=== PATIENT | female | born 1945 | race African-American/Black ===

== ENCOUNTER 2017-03-12 09:11 | Inpatient (IN) ==
--- NOTE | 2017-03-11 21:57 | Discharge Summary ---
<Digna Watersluis manuel Mccracken - Last Filed: 03/11/17 21:54> Date of Encounter: 03/11/17 - Discharge Diagnosis (1) Arthritis of left hip Priority: Primary Status: Acute (2) Status post total hip replacement, left Priority: Primary Status: Acute (3) CKD (chronic kidney disease) stage 3, GFR 30-59 ml/min Priority: Secondary Status: Chronic (4) HTN (hypertension) Priority: Secondary Status: Chronic Qualifiers: Hypertension type: essential hypertension Qualified Code(s): I10 - Essential (primary) hypertension (5) Lupus Priority: Secondary Status: Chronic Qualifiers: Lupus erythematosus form: unspecified Qualified Code(s): L93.0 - Discoid lupus erythematosus (6) Gout Priority: Secondary Status: Chronic Qualifiers: Gout site: unspecified site Gout etiology: unspecified cause Chronicity: unspecified Qualified Code(s): M10.9 - Gout, unspecified (7) Anemia, chronic disease Priority: Secondary Status: Chronic (8) Chronic steroid use Priority: Secondary Status: Chronic - Discharge Medications Home Medications: Aspirin Enteric Coated [Aspirin EC] 325 mg PO DAILY #21 tablet.dr 03/11/17 [Rx] OxyCODONE Immed Rel [Roxicodone 5 MG] 5 - 10 mg PO Q6HR PRN #40 tablet 03/11/17 [Rx] Acetaminophen [Tylenol Arthritis] 650 mg PO Q6H PRN 03/12/17 [History] Allopurinol [Zyloprim 100 MG] 500 mg PO DAILY 03/12/17 [History] Brimonidine Tartrate/Timolol [Combigan Eye Drops] 1 drop OP BID 03/12/17 [ History] Calcitriol [Rocaltrol] 0.25 mcg PO MOWEFR 03/12/17 [History] Cyanocobalamin (B-12) [Vitamin B12] 1,000 mcg IM QMONTH 03/12/17 [History] Furosemide [Lasix] 40 mg PO BID 03/12/17 [History] Hydroxychloroquine [Plaquenuil] 200 mg PO BID 03/12/17 [History] Latanoprost [Xalatan] 1 drop OP QPM 03/12/17 [History] Leflunomide [Arava] 20 mg PO DAILY 03/12/17 [History] Metoprolol Succinate 100 mg PO BID 03/12/17 [History] PredniSONE [Moise] 7.5 mg PO DAILY 03/12/17 [History] PrednisoLONE Acetate [Pred Forte] 2 drop OP QID 03/12/17 [History] Tramadol HCl [Ultram] 50 mg PO Q6H PRN 03/12/17 [History] amLODIPine [Norvasc] 5 mg PO DAILY 03/12/17 [History] Allergies/Adverse Reactions: Allergies azithromycin [From Zithromax] Allergy (Verified 04/28/16 08:30) Hives cephalexin Allergy (Verified 04/28/16 08:30) Hives Erythromycin Base Allergy (Verified 04/28/16 08:30) Hives nitrofurantoin [From Macrodantin] Allergy (Verified 04/28/16 08:30) Hives Penicillins Allergy (Verified 04/28/16 08:30) Itching propoxyphene [From Darvon] Allergy (Verified 04/28/16 08:30) Agitated Sulfa (Sulfonamide Antibiotics) Allergy (Verified 04/28/16 08:30) Hives acetaminophen [From Percocet] Adverse Reaction (Verified 04/28/16 08:30) Agitated Oxycodone [From Percocet] Adverse Reaction (Verified 04/28/16 08:30) Agitated IVP DYe Allergy (Uncoded 04/28/16 08:30) Vomiting Primary care physician: Suzanne Carpenter CNP - Patient Status Disposition: Home Health Service Condition: Good - Discharge Instructions Follow Up With: Suzanne Carpenter CNP [Primary Care Provider] - - Hospital Course Hospital course: Ms. Awad is a 71 year old female - Time Spent with Patient Total time spent providing and/or coordinating discharge services: <Ned Verdugo - Last Filed: 03/14/17 06:25> Date of Encounter: 03/14/17 Time of Encounter: 06:24 - Discharge Diagnosis (1) Anemia, chronic disease Priority: Secondary Status: Chronic (2) Arthritis of left hip Priority: Primary Status: Chronic (3) Chronic steroid use Priority: Secondary Status: Chronic (4) CKD (chronic kidney disease) stage 3, GFR 30-59 ml/min Priority: Secondary Status: Chronic (5) Gout Priority: Secondary Status: Chronic Qualifiers: Gout site: unspecified site Gout etiology: unspecified cause Chronicity: unspecified Qualified Code(s): M10.9 - Gout, unspecified (6) HTN (hypertension) Priority: Secondary Status: Chronic Qualifiers: Hypertension type: essential hypertension Qualified Code(s): I10 - Essential (primary) hypertension (7) Lupus Priority: Secondary Status: Chronic Qualifiers: Lupus erythematosus form: unspecified Qualified Code(s): L93.0 - Discoid lupus erythematosus (8) Status post total hip replacement, left Priority: Primary Status: Acute (9) Obesity (BMI 35.0-39.9 without comorbidity) Priority: Secondary Status: Chronic (10) Acute blood loss anemia Priority: Primary Status: Acute Primary care physician: Suzanne Carpenter CNP - Patient Status Functional capacity at discharge: uses cane/walker Overall status at discharge: patient is progressing back to baseline - Hospital Course Hospital course: Ms. wAad is a 71 year old female Status post left total hip replacement. Patient with acute blood loss anemia discharge hemoglobin 8.5 after 2 units of packed red blood cells. The patient had an uneventful postoperative course. They received antibiotics and physical therapy and were discharged in stable condition. There will follow -up in the office in 2 weeks. - Time Spent with Patient Total time spent providing and/or coordinating discharge services:
[2017-03-12] MEDS ORDERED: Lidocaine -MPF 1% 2 ML VIAL ID ONE (09:36)
[2017-03-12] MEDS ORDERED: Clindamycin 900 MG/50 ML 900 MG/50 ML IV.SOLN IVPB ONE (09:36)
[2017-03-12] MEDS ORDERED: Albuterol 2.5 MG/3 ML NEBULIZER IH ONE (09:36)
[2017-03-12] MEDS ORDERED: Ringers Solution, Lactated 1,000 ML IVC SCH ×2 (09:45→15:12)
--- NOTE | 2017-03-12 09:53 | History & Physical Report ---
Date of Encounter: 03/12/17 Time of Encounter: 09:53 24 Hour HP Update - Instructions Instructions: If the History and Physical is less than 30 days old and was completed prior to A.M. admission and or procedure and has NOT been updated on calendar day of procedure please complete this update prior to performing procedure. - Update Patient reports changes in Medical Condition: No Changes in examination, assessment, or condition: No Changes in Medication: No Preop tests/diagnostics Reviewed: Yes Surgery Remains Indicated: Yes Consent for Planned Operative Procedure(s) Verified: Yes - Pre-Operative Checklist Preoperative Checklist Indicated: No Prophylactic Antibiotic Ordered: Yes Is VTE Prophylaxis Indicated?: Yes
--- NOTE | 2017-03-12 10:26 | Anesthesia Evaluation PreOp ---
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 Other Medical History: Renal (stage 3 ckd), Other (lupus - on daily steroids, rheumatoid arthritis) Anesthesia History: No Prior Anesthetic Complications (except patient is slow to emerge and sensitive to pain medications) Alcohol Use: none Drug use: none Medications and Allergies Aspirin Enteric Coated [Aspirin EC] 325 mg PO DAILY #21 tablet.dr 03/11/17 [Rx] OxyCODONE Immed Rel [Roxicodone 5 MG] 5 - 10 mg PO Q6HR PRN #40 tablet 03/11/17 [Rx] Acetaminophen [Tylenol Arthritis] 650 mg PO Q6H PRN 03/12/17 [History] Allopurinol [Zyloprim 100 MG] 500 mg PO DAILY 03/12/17 [History] Brimonidine Tartrate/Timolol [Combigan Eye Drops] 1 drop OP BID 03/12/17 [ History] Calcitriol [Rocaltrol] 0.25 mcg PO MOWEFR 03/12/17 [History] Cyanocobalamin (B-12) [Vitamin B12] 1,000 mcg IM QMONTH 03/12/17 [History] Furosemide [Lasix] 40 mg PO BID 03/12/17 [History] Hydroxychloroquine [Plaquenuil] 200 mg PO BID 03/12/17 [History] Latanoprost [Xalatan] 1 drop OP QPM 03/12/17 [History] Leflunomide [Arava] 20 mg PO DAILY 03/12/17 [History] Metoprolol Succinate 100 mg PO BID 03/12/17 [History] PredniSONE [Moise] 7.5 mg PO DAILY 03/12/17 [History] PrednisoLONE Acetate [Pred Forte] 2 drop OP QID 03/12/17 [History] Tramadol HCl [Ultram] 50 mg PO Q6H PRN 03/12/17 [History] amLODIPine [Norvasc] 5 mg PO DAILY 03/12/17 [History] Allergies azithromycin [From Zithromax] Allergy (Verified 04/28/16 08:30) Hives cephalexin Allergy (Verified 04/28/16 08:30) Hives Erythromycin Base Allergy (Verified 04/28/16 08:30) Hives nitrofurantoin [From Macrodantin] Allergy (Verified 04/28/16 08:30) Hives Penicillins Allergy (Verified 04/28/16 08:30) Itching propoxyphene [From Darvon] Allergy (Verified 04/28/16 08:30) Agitated Sulfa (Sulfonamide Antibiotics) Allergy (Verified 04/28/16 08:30) Hives acetaminophen [From Percocet] Adverse Reaction (Verified 04/28/16 08:30) Agitated Oxycodone [From Percocet] Adverse Reaction (Verified 04/28/16 08:30) Agitated IVP DYe Allergy (Uncoded 04/28/16 08:30) Vomiting - Meds/Allergy Pre-op Review Medications Reviewed: Yes Allergies Reviewed: Yes Beta Blockers on Current Med List: Yes If Beta Blockers taken, Date/Time (Last Dose taken): 03-12-17 metoprolol 7:15 Anesthesia Results - Labs Laboratory Tests 03/02/17 03/02/17 03/02/17 10:36 10:36 10:36 WBC 9.0 Hgb 10.1 L Hct 34.3 L Plt Count 268 PT 10.6 INR 1.0 APTT 30.1 Sodium 141 Potassium 3.8 Chloride 107 Carbon Dioxide 24 BUN 26 H Creatinine 1.52 H Est GFR ( Amer) 41 L Est GFR (Non-Af Amer) 34 L BUN/Creatinine Ratio 17 - Imaging EKG: report reviewed, image reviewed (SINUS BRADYCARDIA WITH SINUS ARRHYTHMIA POSSIBLE LEFT VENTRICULAR HYPERTROPHY POSSIBLE ANTERIOR MYOCARDIAL INFARCTION, OF INDETERMINATE AGE) Anesthesia Exam Last Vital Signs Temp 98.0 F 03/12/17 09:40 Pulse 64 03/12/17 09:40 Resp 18 03/12/17 09:52 BP 189/79 03/12/17 09:40 Pulse Ox 98 03/12/17 09:52 Weight: 124 kg NPO (# of Hours): >> 8 hrs - HEENT Pupil (Motor): Pupils equal, EOMI Mallampati: II Teeth: Normal Oral Opening: Greater than 3 - LAUNDRY MACHINE MECHANIC LOC: Oriented LAUNDRY MACHINE MECHANIC Motor: Normal RUE, Normal LUE, Normal RLE, Normal LLE, Normal Face - Cardiac Rhythm: Regular Murmur: None - Pulmonary Breath Sounds: bilateral Clear Respiratory Effort: Symmetrical Anesthesia Assess/Plan ASA Score: 3 Modified Yury Scale for Level of Consciousness: Cooperative, oriented, and tranquil Anesthetic Plan: General Monitoring Plan: Standard Monitors Recovery Plan: PACU
--- NOTE | 2017-03-12 11:18 | Physician Discharge Referral ---
Home Health/Hosp Referral Info Transfer to: Home Health Attending Provider: Provider in Charge Post Discharge: PCP - Diagnosis (1) Arthritis of left hip Priority: Primary Status: Chronic (2) Status post total hip replacement, left Priority: Primary Status: Acute (3) CKD (chronic kidney disease) stage 3, GFR 30-59 ml/min Priority: Secondary Status: Chronic (4) HTN (hypertension) Priority: Secondary Status: Chronic (5) Lupus Priority: Secondary Status: Chronic (6) Gout Priority: Secondary Status: Chronic (7) Anemia, chronic disease Priority: Secondary Status: Chronic (8) Chronic steroid use Priority: Secondary Status: Chronic - Respiratory Orders None Smoking Cessation: Smoking cessation has been advised. For more information, call the [employer] Tobacco Quit Line at 6-459-SMKL-NOW. - Dressing/Wound Care Site: Right Hip Type of Dressing/Treatments w/Frequency: Opsite dressing, leave intact until first post-operative visit. If dressing becomes >50% saturated, contact office, remove dressing and place appropriate dressing in its place. Do not allow for dressing to get wet. Ace in place, will be removed day #14-21. - Diet/Nutrition Diet/Nutrition Orders: Regular - Activity Activity Orders: Up ad genaro, Ambulate, Chair - Services Needed Following services are medically necessary services: Nursing, Home Health Aide, Physical Therapy, Occupational Therapy Other Treatments: PT: Precautions x 6 weeks - Hip Precautions Apply cold therapy wrap 3-6x/day for 20 minutes at a time. Encourage ambulation throughout the day and incentive spirometer 10x/hour. Elevate affected extremity above heart as tolerated. Brace: Keep hip Abduction brace on at night x 6 weeks. - Transfer Medications Prescriptions: OxyCODONE Immed Rel [Roxicodone 5 MG] 5 - 10 mg PO Q6HR PRN #40 tablet PRN Reason: Pain Aspirin Enteric Coated [Aspirin EC] 325 mg PO DAILY #21 tablet. Home Medications: Aspirin Enteric Coated [Aspirin EC] 325 mg PO DAILY #21 tablet. 03/11/17 [Rx] OxyCODONE Immed Rel [Roxicodone 5 MG] 5 - 10 mg PO Q6HR PRN #40 tablet 03/11/17 [Rx] Acetaminophen [Tylenol Arthritis] 650 mg PO Q6H PRN 03/12/17 [History] Allopurinol [Zyloprim 100 MG] 500 mg PO DAILY 03/12/17 [History] Brimonidine Tartrate/Timolol [Combigan Eye Drops] 1 drop OP BID 03/12/17 [ History] Calcitriol [Rocaltrol] 0.25 mcg PO MOWEFR 03/12/17 [History] Cyanocobalamin (B-12) [Vitamin B12] 1,000 mcg IM QMONTH 03/12/17 [History] Furosemide [Lasix] 40 mg PO BID 03/12/17 [History] Hydroxychloroquine [Plaquenuil] 200 mg PO BID 03/12/17 [History] Latanoprost [Xalatan] 1 drop OP QPM 03/12/17 [History] Leflunomide [Arava] 20 mg PO DAILY 03/12/17 [History] Metoprolol Succinate 100 mg PO BID 03/12/17 [History] PredniSONE [Moise] 7.5 mg PO DAILY 03/12/17 [History] PrednisoLONE Acetate [Pred Forte] 2 drop OP QID 03/12/17 [History] Tramadol HCl [Ultram] 50 mg PO Q6H PRN 03/12/17 [History] amLODIPine [Norvasc] 5 mg PO DAILY 03/12/17 [History] Allergies/Adverse Reactions: Allergies azithromycin [From Zithromax] Allergy (Verified 04/28/16 08:30) Hives cephalexin Allergy (Verified 04/28/16 08:30) Hives Erythromycin Base Allergy (Verified 04/28/16 08:30) Hives nitrofurantoin [From Macrodantin] Allergy (Verified 04/28/16 08:30) Hives Penicillins Allergy (Verified 04/28/16 08:30) Itching propoxyphene [From Darvon] Allergy (Verified 04/28/16 08:30) Agitated Sulfa (Sulfonamide Antibiotics) Allergy (Verified 04/28/16 08:30) Hives acetaminophen [From Percocet] Adverse Reaction (Verified 04/28/16 08:30) Agitated Oxycodone [From Percocet] Adverse Reaction (Verified 04/28/16 08:30) Agitated IVP DYe Allergy (Uncoded 04/28/16 08:30) Vomiting Certification: Further, I certify that my clinical findings support that this patient is homebound (i.e. absences from home require considerable and taxing effort and are for medical reasons or church services or infrequently or short duration when for other reasons) because: Homebound Reason: Post-surgery restriction and or conditions limit ability to leave home Attestation: My signature below is to certify that this patient is under my care and that I, or nurse practitioner, or a physician's orthodontic assistant working with me, has a face-to -face encounter with this patient.
[2017-03-12] MEDS ORDERED: *HR* FentaNYL (PF) 100 MCG/2 ML VIAL ONE (11:28)
[2017-03-12] MEDS ORDERED: *HR* Propofol 200 MG/20 ML VIAL IVP ONE (11:28)
[2017-03-12] MEDS ORDERED: Lidocaine -MPF 2% 2 ML VIAL ONE (11:30)
[2017-03-12] MEDS ORDERED: Dexamethasone 4 MG/ML VIAL ONE (11:30)
[2017-03-12] MEDS ORDERED: Hydrocortisone Sodium Succ 100 MG/2 ML VIAL ONE (11:33)
[2017-03-12] MEDS ORDERED: *HR* Labetalol 20 MG/4 ML SYRINGE IVP PRN (11:43)
[2017-03-12] MEDS ORDERED: *HR* HYDROmorphone (PF) 1 MG/ML SYRINGE IVP PRN ×2 (11:43→15:12)
[2017-03-12] MEDS ORDERED: *HR* Meperidine 25 MG/ML SYRINGE IVP PRN (11:43)
[2017-03-12] MEDS ORDERED: Bupivacaine/Clonidine Syringe 1 EACH SYRINGE ONE (12:15)
[2017-03-12] MEDS ORDERED: *HR* Succinylcholine 200 MG/10 ML VIAL IVP ONE (12:26)
[2017-03-12] MEDS ORDERED: *HR* HYDROmorphone 2 MG/ML SYRINGE ONE (12:56)
[2017-03-12] MEDS ORDERED: Lidocaine -MPF 4% 5 ML AMPUL ONE (13:08)
--- NOTE | 2017-03-12 13:31 | Orthopedic Operative Note ---
Date of procedure: 03/12/17 Pre-op diagnosis: Right hip arthritis Post-op diagnosis: same (Morbidly obese) Procedure: Procedure: Right Total Hip Replacment Estimated blood loss: 400 cc Hardware: Metal and polyethylene replacement. Biomet DM Cup: 60 G7 fin cup Femoral size 16 echo full profile lateralized stem Head: 6 head with Myrna Procedural Notes: Morbidly obese, grade 4 arthritic changes femoral head acetabular socket. Operative procedure: The patient was brought to the operating room and placed on the operating room table. After general anesthesia was administered the patient was placed in the lateral decubitus position with the operative leg up. All pressure points were padded appropriately and the head was stabilized in the neutral position. The operative extremity was prepped and draped in the sterile surgical fashion patient received IV antibiotic prior to skin incision. A standard posterior approach is made to the operative hip, the incision was made through the skin and subcutaneous tissue hemostasis was obtained with Bovie cautery. Using careful sharp dissection the fascia was identified and incised exposing the external rotators. The external rotators were released off the greater trochanter and tagged with #2 FiberWire suture. The capsule was T'd open and the hip was brought into internal rotation. Patient noted to have grade 4 arthritic changes femoral head. The femoral neck cut was made at the appropriate level. An anterior capsulotomy was performed for the anterior retractor. Soft tissues removed from the acetabulum. Patient noted to have grade 4 arthritic changes acetabulum. Acetabulum was first reamed medially, and then reamed in 15 degrees of anteversion and 45 degrees off the horizontal. It was reamed up to the appropriate size 60. The appropriate-sized 60 acetabular cup was impacted in place in 15 degrees of anteversion and 45 degrees off the horizontal. This had good fit and fixation. The hip was brought back in to internal rotation and prepared with the box bender followed by the canal finder followed by broaching process in 20 degrees anteversion. It was broached up to the appropriate size 16. The femoral implant was impacted in place in 20 degrees of anteversion. Trial reduction found the hip to be stable with +6 head and Myrna. The trials were removed and the real implants were impacted in place. The hip was reduced, patient had apparent equal leg lengths. The hip had excellent stability with forward flexion to 90 degrees adduction of 30 degrees and internal rotation of 60 degrees. The hip had no shuck. The hips after 2 minutes with a Betadine saline solution. It was irrigated out with 2 L of pulse irrigation. The PA closed the hip. Fascia was closed with a running #2 PDS suture. The deep tissue was irrigated and closed deep with #1 PDS suture superficially with 0 PDS suture and skin was closed with Dermabond and skin tammy. The patient was placed in a sterile dressing and abduction pillow. The patient was extubated and transferred to the recovery room in stable condition. Anesthesia: GETA Surgeon: Ned Verdugo Condition: stable Disposition: PACU
[2017-03-12 14:42] LABS: Hematocrit 29.2 % (35.3-44.9); Hemoglobin 9.1 g/dL (11.5-15.4)
--- NOTE | 2017-03-12 14:47 | Anesthesia Evaluation Post Op ---
Date of Encounter: 03/12/17 Time of Encounter: 14:47 - Vital Signs Vital Signs: vss - Lungs Lungs: Clear Ascult./Percussion - Airway Airway: Non-obstructed - Cardiovascular Baseline Rhythm - Mental Status Mental Status: Asleep with brisk response to light stimulation - Pain Pain Scale used: Deyvi (Faces) - Nausea Vomiting Nausea Vomiting: Not Present - Discharge PostOp Status: Transfer Patient to floor
[2017-03-12] MEDS ORDERED: Sennosides 8.6 MG TABLET PO PRN (15:12)
[2017-03-12] MEDS ORDERED: Cyanocobalamin (B-12) 1,000 MCG/ML VIAL IM SCH (15:12)
[2017-03-12] MEDS ORDERED: Ondansetron 4 MG/2 ML VIAL IVP PRN (15:12)
[2017-03-12] MEDS ORDERED: MOM Conc 10 ML UD.LIQ PO PRN (15:12)
[2017-03-12] MEDS ORDERED: Acetaminophen 325 MG TABLET PO PRN (15:12)
[2017-03-12] MEDS ORDERED: Naloxone 0.4 MG/ML INJ IVP PRN (15:12)
[2017-03-12] MEDS: Ascorbic Acid 500 MG TABLET PO SCH (17:57)
[2017-03-12] MEDS: Clindamycin 900 MG/50 ML 900 MG/50 ML IV.SOLN IVPB SCH (17:57)
[2017-03-12] MEDS: traMADol 50 MG TABLET PO PRN (17:57)
[2017-03-12] MEDS: *HR* Enoxaparin 30 MG/0.3 ML SYRINGE SQ SCH (17:58)
[2017-03-12] MEDS: PrednisoLONE Acetate 1% Opth 5 ML BOTTLE BOTH EYES SCH ×3 (18:00→22:01)
[2017-03-12] MEDS ORDERED: *HR* Enoxaparin 30 MG/0.3 ML SYRINGE SQ SCH (18:00)
[2017-03-12] MEDS: Latanoprost 2.5 ML BOTTLE BOTH EYES SCH (18:04)
[2017-03-12] MEDS ORDERED: Temazepam 15 MG CAPSULE PO PRN (21:00)
[2017-03-12] MEDS: Metoprolol XL (24 HR) Succ 50 MG TAB.ER.24H PO SCH (21:57)
[2017-03-12] MEDS: *HR* HYDROcodone/Acet 5/325 mg TABLET PO PRN (21:57)
[2017-03-12] MEDS: TIMOLOL OP SCH (22:01)
[2017-03-12] MEDS: BRIMONIDINE TARTRATE OP SCH (22:01)
[2017-03-12] MEDS: Furosemide 40 MG TABLET PO SCH (22:03)
[2017-03-13] MEDS: Clindamycin 900 MG/50 ML 900 MG/50 ML IV.SOLN IVPB SCH (00:09)
[2017-03-13] MEDS: *HR* Enoxaparin 30 MG/0.3 ML SYRINGE SQ SCH ×2 (05:15→17:43)
[2017-03-13] MEDS: traMADol 50 MG TABLET PO PRN (05:16)
[2017-03-13 06:25] LABS: Hematocrit 25.2 % (35.3-44.9); Hemoglobin 7.7 g/dL (11.5-15.4)
[2017-03-13 06:44] LABS: Calcium 8.7 mg/dL (8.6-10.8); Potassium 4.5 mEq/L (3.5-4.5)
[2017-03-13] MEDS ORDERED: 0.9 % Sodium Chloride 250 ML ONE ×2 (08:25→11:45)
[2017-03-13] MEDS: predniSONE 5 MG TABLET PO SCH (08:46)
[2017-03-13] MEDS: amLODIPine 5 MG TABLET PO SCH (08:47)
[2017-03-13] MEDS: Multivit/Ca/Min/Fe/FA 1 TAB TABLET PO SCH (08:47)
[2017-03-13] MEDS: Metoprolol XL (24 HR) Succ 50 MG TAB.ER.24H PO SCH ×2 (08:47→22:04)
[2017-03-13] MEDS: Ascorbic Acid 500 MG TABLET PO SCH ×2 (08:48→17:43)
[2017-03-13] MEDS: Furosemide 40 MG TABLET PO SCH ×2 (08:48→22:04)
[2017-03-13] MEDS: *HR* HYDROcodone/Acet 5/325 mg TABLET PO PRN ×3 (08:48→22:23)
[2017-03-13] MEDS: PrednisoLONE Acetate 1% Opth 5 ML BOTTLE BOTH EYES SCH ×5 (08:52→22:09)
[2017-03-13] MEDS: BRIMONIDINE TARTRATE OP SCH ×3 (08:52→22:10)
[2017-03-13] MEDS: TIMOLOL OP SCH ×3 (08:52→22:10)
[2017-03-13] MEDS: Leflunomide [Arava] 20 MG PO SCH (08:52)
--- NOTE | 2017-03-13 12:28 | Event Note ---
Date of Encounter: 03/13/17 Time of Encounter: 12:26 PCR - POD# Right THR - history of CKD, HTN, Lupus, Goup, RA - Allergy to Percocet, Darvocet, Keflex - *Also on Prednisone 5mg chronically. Patient seen at bedside. H/h7.02/20.2 - Acute on chronic anemia - 2 units given 03/13/17 Pain control: adequate Participating in PT. All questions and concerns addressed. Educated on use of incentive spirometer, ambulation, and hydration. Patient educated on post-operative restrictions and care. Addressed: D/C plan: EILEEN
--- NOTE | 2017-03-13 17:11 | Orthopedics Progress Note ---
Date of Encounter: 03/13/17 Time of Encounter: 08:00 - Assessment and Plan (1) Status post total hip replacement, right Current Visit: Yes Status: Acute Subjective Principal diagnosis: right total hip Interval history: Right THR 03/12/17 POD#1 Patient doing well, A&O in bed, Pain controlled. Vitals stable. Afebrile. H/H - Stable - 7. - symptomatic - receiving 2 units this morning RLE: Swelling noted to Right hip, no erythema or ecchymosis noted. Tenderness to Right hip. No calf tenderness or warmth noted. ROM limited. NV intact distally. Plan: RLE: WBAT D/C to home with Objective Vital signs: Vital Signs Temp Pulse Resp BP Pulse Ox 03/13/17 17:02 97.9 F 60 16 141/57 98 03/13/17 15:00 98.1 F 61 15 130/70 97 03/13/17 12:17 98.6 F 60 15 144/58 97 03/13/17 11:58 97.6 F 62 15 140/61 96 03/13/17 11:51 97.6 F 62 15 140/61 96 03/13/17 08:55 98.4 F 55 15 133/63 100 03/13/17 08:38 98.8 F 60 15 125/61 99 03/13/17 06:33 98.2 F 59 16 131/62 97 03/13/17 03:46 98.3 F 62 17 135/64 97 03/13/17 03:13 98 03/12/17 23:51 97.8 F 60 18 140/61 98 03/12/17 21:57 97.5 F L 59 17 144/63 98 Intake and Output 03/13/17 03/13/17 03/13/17 07:59 15:59 23:59 Intake Total 50 / 50 1020 / 1020 Output Total 150 / 150 700 / 700 Balance -100 / -100 320 / 320 Intake: Oral 50 / 50 320 / 320 Blood Product 700 / 700 Rbcs Leuko Poor As-1 350 / 350 Unit [id number] Rbcs Leuko Poor As-3 2nd 350 / 350 Unit [id number] Output: Urine 150 / 150 700 / 700 Other: Meal Breakfast Percent of Meal Consumed 90% Weight 124.5 kg Patient Weight 03/13/17 23:59 Weight 124.5 kg - Labs CBC & BMP: 03/13/17 04:54 03/13/17 04:54 Labs: Abnormal lab results Hgb 7.7 g/dL (11.5-15.4) L 03/13/17 04:54 Hct 25.2 % (35.3-44.9) L 03/13/17 04:54 BUN 34 mg/dL (7-20) H 03/13/17 04:54 Creatinine 1.62 mg/dL (0.57-1.11) H 03/13/17 04:54 Est GFR ( Amer) 38 (> 60) L 03/13/17 04:54 Est GFR (Non-Af Amer) 31 (> 60) L 03/13/17 04:54 Glucose 119 mg/dL (70-99) H 03/13/17 04:54 - VTE Documentation of Mechanical Device: Venous foot pump, device Consult Discharge Plan - Plan Referrals: Suzanne Carpenter, CHAR FILTER OPERATOR HELPER [Primary Care Provider] -
[2017-03-13] MEDS: Latanoprost 2.5 ML BOTTLE BOTH EYES SCH (17:44)
[2017-03-14 05:09] LABS: Hematocrit 26.6 % (35.3-44.9); Hemoglobin 8.5 g/dL (11.5-15.4)
[2017-03-14 05:23] LABS: Potassium 3.9 mEq/L (3.5-4.5)
[2017-03-14] MEDS: *HR* Enoxaparin 30 MG/0.3 ML SYRINGE SQ SCH (05:50)
[2017-03-14] MEDS: *HR* HYDROcodone/Acet 5/325 mg TABLET PO PRN (05:54)
--- NOTE | 2017-03-14 06:26 | Orthopedics Progress Note ---
Date of Encounter: 03/14/17 Time of Encounter: 06:25 - Assessment and Plan (1) Anemia, chronic disease Current Visit: Yes Status: Chronic (2) Arthritis of left hip Current Visit: Yes Status: Chronic (3) Chronic steroid use Current Visit: Yes Status: Chronic (4) CKD (chronic kidney disease) stage 3, GFR 30-59 ml/min Current Visit: Yes Status: Chronic (5) Gout Current Visit: Yes Status: Chronic Qualifiers: Gout site: unspecified site Gout etiology: unspecified cause Chronicity: unspecified Qualified Code(s): M10.9 - Gout, unspecified (6) HTN (hypertension) Current Visit: Yes Status: Chronic Qualifiers: Hypertension type: essential hypertension Qualified Code(s): I10 - Essential (primary) hypertension (7) Lupus Current Visit: Yes Status: Chronic Qualifiers: Lupus erythematosus form: unspecified Qualified Code(s): L93.0 - Discoid lupus erythematosus (8) Status post total hip replacement, left Current Visit: Yes Status: Acute (9) Obesity (BMI 35.0-39.9 without comorbidity) Current Visit: Yes Status: Chronic (10) Acute blood loss anemia Current Visit: Yes Status: Acute Subjective Principal diagnosis: right total hip Interval history: Patient was seen this morning doing well without complaints. Afebrile vital signs stable. Operative extremity: Neurovascularly intact Dressing clean dry and intact Calves nontender Assessment and plan: Continue with postoperative care Hemoglobin 8.5 after 2 units. Discharge today Objective Vital signs: Vital Signs Temp Pulse Resp BP Pulse Ox 03/14/17 00:58 98.8 F 62 17 138/68 94 03/13/17 21:00 94 03/13/17 20:00 98.8 F 62 18 150/72 94 03/13/17 17:02 97.9 F 60 16 141/57 98 03/13/17 15:00 98.1 F 61 15 130/70 97 03/13/17 12:17 98.6 F 60 15 144/58 97 03/13/17 11:58 97.6 F 62 15 140/61 96 03/13/17 11:51 97.6 F 62 15 140/61 96 03/13/17 08:55 98.4 F 55 15 133/63 100 03/13/17 08:38 98.8 F 60 15 125/61 99 03/13/17 06:33 98.2 F 59 16 131/62 97 Intake and Output 03/13/17 03/13/17 03/14/17 15:59 23:59 07:59 Intake Total 1020 / 1020 1120 / 1120 500 / 500 Output Total 700 / 700 350 / 350 Balance 320 / 320 770 / 770 500 / 500 Intake: IV Fluids 1000 / 1000 Lactated Ringers 1,000 ML 1000 / 1000 @ 75 mls/hr IVC .[id number] HARDEEP Rx#:[id number] Oral 320 / 320 120 / 120 500 / 500 Blood Product 700 / 700 Rbcs Leuko Poor As-1 350 / 350 Unit [id number] Rbcs Leuko Poor As-3 2nd 350 / 350 Unit [id number] Output: Urine 700 / 700 350 / 350 Other: Meal Breakfast Dinner Percent of Meal Consumed 90% 75% # Voids 1 4 - Labs CBC & BMP: 03/14/17 04:43 03/14/17 04:43 Labs: Abnormal lab results Hgb 8.5 g/dL (11.5-15.4) L 03/14/17 04:43 Hct 26.6 % (35.3-44.9) L 03/14/17 04:43 BUN 42 mg/dL (7-20) H 03/14/17 04:43 Creatinine 1.85 mg/dL (0.57-1.11) H 03/14/17 04:43 Est GFR ( Amer) 33 (> 60) L 03/14/17 04:43 Est GFR (Non-Af Amer) 27 (> 60) L 03/14/17 04:43 - VTE Documentation of Mechanical Device: Venous foot pump, device Consult Discharge Plan - Plan Referrals: Suzanne Carpenter, WILDLIFE VETERINARIAN [Primary Care Provider] -
[2017-03-14] MEDS: amLODIPine 5 MG TABLET PO SCH (09:32)
[2017-03-14] MEDS: Multivit/Ca/Min/Fe/FA 1 TAB TABLET PO SCH (09:32)
[2017-03-14] MEDS: Furosemide 40 MG TABLET PO SCH (09:32)
[2017-03-14] MEDS: predniSONE 5 MG TABLET PO SCH (09:32)
[2017-03-14] MEDS: PrednisoLONE Acetate 1% Opth 5 ML BOTTLE BOTH EYES SCH (09:33)
[2017-03-14] MEDS: Ascorbic Acid 500 MG TABLET PO SCH (09:33)
[2017-03-14] MEDS: Metoprolol XL (24 HR) Succ 50 MG TAB.ER.24H PO SCH (09:33)
[2017-03-14] MEDS: Leflunomide [Arava] 20 MG PO SCH (09:34)
[2017-03-14] MEDS: BRIMONIDINE TARTRATE OP SCH (09:35)
[2017-03-14] MEDS: TIMOLOL OP SCH (09:35)
[2017-03-14 12:58] VITALS: BP 127/84
--- NOTE | 2017-03-14 14:40 | Event Note ---
Date of Encounter: 03/14/17 Time of Encounter: 11:50 PCR - POD#2 Right THR - history of CKD, HTN, Lupus, Goup, RA - Allergy to Percocet, Darvocet, Keflex - *Also on Prednisone 5mg chronically. Patient seen at bedside. Patient clinically improved and H/H improved to 8.5/26.2 from H/h7.7/25.2 ; Acute on chronic anemia - 2 units given 03/13/17 Pain control: adequate Participating in PT. All questions and concerns addressed. Educated on use of incentive spirometer, ambulation, and hydration. Patient educated on post-operative restrictions and care. Addressed: D/C plan: D/C today with HH. Shower chair rx provided.
[2017-03-15] MEDS ORDERED: *HR* Enoxaparin 30 MG/0.3 ML SYRINGE SQ SCH (06:00)
== END 2017-03-14 16:06 | disposition home health service (06) | DRG 470 ==
LOC: SAMDAY 09:11 → 3NENU 15:14
PROVIDERS: ADMIT Orthopaedic Surgery; ATTEND Orthopaedic Surgery

== ENCOUNTER 2019-12-03 11:19 | Inpatient (IN) ==
[2019-12-03] MEDS ORDERED: Clindamycin 900 MG/50 ML 900 MG/50 ML IV.SOLN IVPB ONE ×2 (12:12→13:48)
[2019-12-03] MEDS ORDERED: Ringers Solution, Lactated 1,000 ML IVC SCH ×2 (12:15→16:10)
[2019-12-03] MEDS ORDERED: Ondansetron 4 MG/2 ML VIAL ONE (12:46)
[2019-12-03] MEDS ORDERED: Lidocaine -MPF 2% 2 ML VIAL ONE (12:46)
[2019-12-03] MEDS ORDERED: *HR* Succinylcholine 200 MG/10 ML VIAL IVP ONE (12:46)
[2019-12-03] MEDS ORDERED: *HR* Propofol 200 MG/20 ML VIAL IVP ONE (12:46)
[2019-12-03] MEDS ORDERED: Lidocaine -MPF 4% 5 ML AMPUL ONE (12:46)
[2019-12-03] MEDS ORDERED: *HR* FentaNYL (PF) 100 MCG/2 ML VIAL ONE (12:46)
[2019-12-03] MEDS ORDERED: *HR* Midazolam HCl 2 MG/2 ML VIAL ONE (12:46)
[2019-12-03] MEDS ORDERED: Dexamethasone 4 MG/ML VIAL ONE (12:46)
[2019-12-03] MEDS ORDERED: *HR* PHENYLEPHRINE 1,000 MCG/10 ML SYRINGE IVP ONE ×2 (12:51→14:25)
[2019-12-03] MEDS ORDERED: EPHEDrine 50 MG/ML VIAL ONE (12:51)
[2019-12-03] MEDS ORDERED: Ethanol\\Acetic Acid\\Na Ace\\Ben 1,000 ML IRRIG.SOLN IR ONE (13:14)
[2019-12-03] MEDS ORDERED: Ropivacaine/PF 0.5% 30 ML VIAL ONE (13:17)
[2019-12-03 15:33] LABS: Hematocrit 31.5 % (35.3-44.9); Hemoglobin 9.7 g/dL (11.5-15.4)
[2019-12-03] MEDS ORDERED: Naloxone 0.4 MG/ML INJ IVP PRN (16:10)
[2019-12-03] MEDS ORDERED: *HR* OxyCODONE/APAP 5/325 TABLET PO PRN (16:10)
[2019-12-03] MEDS ORDERED: Sennosides 8.6 MG TABLET PO PRN (16:10)
[2019-12-03] MEDS ORDERED: Ondansetron 4 MG/2 ML VIAL IVP PRN (16:10)
[2019-12-03] MEDS ORDERED: MOM Conc 10 ML UD.LIQ PO PRN (16:10)
[2019-12-03] MEDS ORDERED: *HR* OxyCODONE Immed Rel 5 MG TABLET PO PRN (16:10)
[2019-12-03] MEDS: PrednisoLONE Acetate 1% Opth 5 ML BOTTLE BOTH EYES SCH ×3 (17:39→20:31)
[2019-12-03] MEDS ORDERED: *HR* HYDROcodone/Acet 5/325 mg TABLET PO PRN (17:44)
[2019-12-03] MEDS ORDERED: *HR* Enoxaparin 30 MG/0.3 ML SYRINGE SQ SCH (18:00)
[2019-12-03] MEDS ORDERED: Latanoprost 2.5 ML BOTTLE BOTH EYES SCH (18:00)
[2019-12-03] MEDS: Furosemide 40 MG TABLET PO SCH (18:05)
[2019-12-03] MEDS: *HR* Enoxaparin 30 MG/0.3 ML SYRINGE SQ SCH (18:05)
[2019-12-03] MEDS: Clindamycin 900 MG/50 ML 900 MG/50 ML IV.SOLN IVPB SCH (18:06)
[2019-12-04] MEDS: Clindamycin 900 MG/50 ML 900 MG/50 ML IV.SOLN IVPB SCH (01:07)
[2019-12-04] MEDS: *HR* Enoxaparin 30 MG/0.3 ML SYRINGE SQ SCH (05:38)
[2019-12-04] MEDS: Furosemide 40 MG TABLET PO SCH (07:38)
[2019-12-04] MEDS: PrednisoLONE Acetate 1% Opth 5 ML BOTTLE BOTH EYES SCH ×2 (07:38→13:40)
[2019-12-04] MEDS ORDERED: Cyanocobalamin (B-12) 1,000 MCG TABLET PO SCH (09:00)
[2019-12-04] MEDS ORDERED: predniSONE 5 MG TABLET PO SCH (09:00)
[2019-12-04] MEDS ORDERED: calcitrioL 0.25 MCG CAPSULE PO SCH (09:00)
[2019-12-04] MEDS ORDERED: allopurinoL 100 MG TABLET PO SCH ×2 (09:00)
[2019-12-04] MEDS ORDERED: predniSONE 1 MG TABLET PO SCH (09:00)
[2019-12-04] MEDS ORDERED: amLODIPine 5 MG TABLET PO SCH ×2 (09:00)
[2019-12-04 10:52] LABS: Hematocrit 30.6 % (35.3-44.9); Hemoglobin 9.8 g/dL (11.5-15.4)
[2019-12-04 11:10] LABS: Calcium 9.1 mg/dL (8.6-10.3); Potassium 3.8 mEq/L (3.5-5.1)
[2019-12-04 11:30] VITALS: BP 147/78
== END 2019-12-04 14:40 | disposition home or self-care (01) | DRG 483 ==
LOC: SAMDAY 11:19 → 3NENU 16:05
PROVIDERS: ADMIT Orthopaedic Surgery; ATTEND Orthopaedic Surgery